=== PATIENT | male | born 1955 | race African-American/Black ===

== ENCOUNTER 2020-01-10 15:28 | Emergency (ER) | payer MEDICARE, MEDICAID ==
[~2020-01-10] VITALS: Ht 167.6 cm; Wt 90.7 kg
[2020-01-10 15:40] VITALS: BP 120/71
--- NOTE | 2020-01-10 15:40 | NUR ---
ED Nurse Note: pt. injured his right thumb while he was fixing the car 5 days ago and it got worse and still swallen
--- NOTE | 2020-01-10 16:16 | Emergency Room Report ---
History of Present Illness General Chief Complaint: Upper Extremity Injury Source: Patient Present Illness HPI 64-year-old male with history of arthritis here complaining of right thumb pain that started 1 week ago. 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 Also complains of pain and minimal pus drainage around the nailbed of the second finger. Denies any fever and chills, pain radiation rating pain 5 out of 10 upon palpation of the affected area. Denies tingling and numbness. Denies chest pain, shortness of breath, cough or congestion, no other associate symptoms. Has not taken medication for symptom relief. Reports that he has ibuprofen 800 at home. Allergies: Coded Allergies: No Known Allergies (Unverified , 01/10/20) COVID-19 Screening Contact w/high risk pt: No Recent Travel to affected area: No Experienced COVID-19 symptoms?: No Patient History Past Medical History: see triage record Past Surgical History: none Pertinent Family History: none Immunizations: UTD Reviewed Nursing Documentation: PMH: Agreed; PSxH: Agreed Nursing Documentation-PMH Hx Cardiac Problems: Yes - [place], stent placement, glaucoma Review of Systems All Other Systems: negative except mentioned in HPI Physical Exam Vital Signs Date Time Temp Pulse Resp B/P (MAP) Pulse Ox O2 Delivery O2 Flow Rate FiO2 01/10/20 15:32 97.7 70 17 120/71 (87) 98 Room Air Sp02 EP Interpretation: reviewed, normal General Appearance: no apparent distress, alert, GCS 15, non-toxic Head: normocephalic, atraumatic Eyes: bilateral eye normal inspection, bilateral eye PERRL ENT: hearing grossly normal, normal pharynx, no angioedema, normal voice Neck: full range of motion, supple/symm/no masses Respiratory: chest non-tender, lungs clear, normal breath sounds, no rhonchi, speaking full sentences Cardiovascular #1: regular rate, rhythm, no edema, no murmur Cardiovascular #2: 2+ radial (R), 2+ radial (L) Gastrointestinal: normal bowel sounds, non tender, soft, non-distended, no guarding, no rebound Rectal: deferred Genitourinary: no CVA tenderness Musculoskeletal: back normal, swelling - Right thumb at PIP with nodule formation Neurologic: alert, oriented Psychiatric: judgement/insight normal, memory normal, mood/affect normal, no suicidal/homicidal ideation Skin: other - Paronychia right thumb Lymphatic: no adenopathy Procedures Splinting Splinting : Consent: Verbal Location: Right thumb Pre-Made Type: velcro Pre-Proc Neuro Vasc Exam: normal Post-Proc Neuro Vasc Exam: normal Patient Tolerated: Well Complications: None Medical Decision Making PA Attestation All diagnoses and treatment plans were reviewed and discussed with my supervising physician Dr. Almonte Diagnostic Impression: Primary Impression: Thumb sprain Additional Impressions: Arthritis Paronychia ER Course 64-year-old male with history of arthritis here complaining of right thumb pain that started 1 week ago. 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 Also complains of pain and minimal pus drainage around the nailbed of the second finger. Denies any fever and chills, pain radiation rating pain 5 out of 10 upon palpation of the affected area. Denies tingling and numbness. Denies chest pain, shortness of breath, cough or congestion, no other associate symptoms. Has not taken medication for symptom relief. Reports that he has ibuprofen 800 at home. Ddx considered but are not limited to : Cellulitis, paronychia, thumb sprain, thumb fracture, arthritis, superficial infection, abscess Vital signs: are WNL, pt. is afebrile H&PE are most consistent with: Thumb sprain with arthritis, paronychia ORDERS: Right hand x-ray, Keflex, Robaxin, Voltaren gel ED INTERVENTIONS: Velcro thumb spica for symptom relief DISCHARGE: At this time pt. is stable for d/c to home. Will provide printed patient care instructions, and any necessary prescriptions. Care plan and follow up instructions have been discussed with the patient prior to discharge. Patient to follow primary doctor as well as mri specialist. Continue taking ibuprofen at home. If worsening symptoms return to the emergency room. At this time amount of paronychia is very small and hardening and does not need to be drained. Antibiotics to be taken. If worsening symptoms return to emergency room Other X-Ray Diagnostic Results Other X-Ray Diagnostic Results : X-Ray ordered: Right hand # of Views/Limited Vs Complete: 3 View Indication: Pain EP Interpretation: Yes PA Xray: Interpretation reviewed, by supervising MD, and agrees with findings. Interpretation: no dislocation, no soft tissue swelling, no fractures Impression: No acute disease Electronically Signed by: Jessie DYER Scribfrancisco j Text FINDINGS: Bones/joints: No displaced fracture or dislocation identified. Osteopenia. Mild degenerative changes of the right first MCP joint Soft tissues: Normal. IMPRESSION: No displaced fracture or dislocation identified. Last Vital Signs Date Time Temp Pulse Resp B/P (MAP) Pulse Ox O2 Delivery O2 Flow Rate FiO2 01/10/20 15:32 97.7 70 17 120/71 (87) 98 Room Air Disposition: HOME, SELF-CARE Condition: Stable Scripts Diclofenac Sodium (VOLTAREN) 100 Gm Gel..gram. 2 GM TP TID, #100 GM Prov: Jessie Chen 01/10/20 Methocarbamol* (ROBAXIN-500*) 500 Mg Tablet 500 MG ORAL TID PRN for For Pain, #15 TAB 0 Refills Prov: Jessie Chen 01/10/20 Cephalexin* (KEFLEX*) 500 Mg Capsule 500 MG ORAL EVERY 6 HOURS for 7 Days, #28 CAP Prov: Jessie Chen 01/10/20 Patient Instructions: Arthritis, [id number], Paronychia, [id number], Thumb Sprain Additional Instructions: Take medication as directed, follow-up with mri specialist, if worsening symptoms return to the emergency room Jessie Chen January 10, 2020 16:16
[2020-01-10] MEDS ORDERED: CEPHALEXIN500 MG ORAL (16:19)
[2020-01-10] MEDS ORDERED: ROBAXIN-500MG ORAL (16:19)
[2020-01-10] MEDS ORDERED: VOLTAREN100 G1 TP (16:19)
--- NOTE | 2020-01-10 16:23 | NUR ---
ED Nurse Note: Tech provide the sling on right hand.
--- NOTE | 2020-01-10 16:24 | Diagnostic Imaging Report ---
EXAM: XR Right Hand Complete, 3 or More Views CLINICAL HISTORY: TRAUMA TECHNIQUE: Frontal, lateral and oblique views of the right hand. COMPARISON: None FINDINGS: Bones/joints: No displaced fracture or dislocation identified. Osteopenia. Mild degenerative changes of the right first MCP joint Soft tissues: Normal. IMPRESSION: No displaced fracture or dislocation identified.
--- NOTE | 2020-01-10 16:28 | NUR ---
ER DISCHARGE NOTE: Patient is cleared to be discharged per ERMD, pt is aox4, on room air, with stable vital signs. pt was given dc and prescription instructions, pt was able to verbalize understanding, pt id band removed without complications. pt is able to ambulate with steady gait. pt took all belongings.
== END 2020-01-10 16:40 | disposition home or self-care (01) ==
LOC: EMR 15:40
DX: S63.601A Unspecified sprain of right thumb, initial encounter (principal); M18.9 Osteoarthritis of first carpometacarpal joint, unspecified; M85.88 Other specified disorders of bone density and structure, other site; X58.XXXA Exposure to other specified factors, initial encounter; Y92.9 Unspecified place or not applicable; I25.2 Old myocardial infarction; Z95.5 Presence of coronary angioplasty implant and graft; L03.011 Cellulitis of right finger
CPT/HCPCS: 29130; 99283